=== PATIENT | female | born 1990 | race Caucasian/White ===

== ENCOUNTER 2019-01-08 08:38 | Emergency (ER) | payer OTHER ==
[~2019-01-08] VITALS: Ht 182.9 cm; Wt 95.3 kg
[2019-01-08 08:43] VITALS: BP 137/97
--- NOTE | 2019-01-08 08:49 | NUR ---
Patient ambulated to bed 3. RN evaluating patient at bedside.
--- NOTE | 2019-01-08 08:54 | NUR ---
28/f bib self c/o LEFT LOWER BACK PAIN RADIATING TO LEFT LOWER LEG X YESTERDAY. denies trauma/injury. PATIENT STATES LEFT CALF PAIN OF 10/10 AT THIS TIME. PATIENT POSITIONED FOR COMFORT; HOB ELEVATED; BEDRAILS UP X1; BED DOWN. ER MD MADE AWARE OF PT STATUS.
--- NOTE | 2019-01-08 09:31 | NUR ---
Patient being evaluated by DR IRBY at bedside.
--- NOTE | 2019-01-08 09:53 | NUR ---
PATIENT STATED SHE'S UNABLE TO PROVIDE URINE AT THIS TIME.
--- NOTE | 2019-01-08 10:20 | NUR ---
US AT BEDSIDE
--- NOTE | 2019-01-08 10:21 | NUR ---
PATIENT STATED SHE'S UNABLE TO PROVIDE URINE AT THIS TIME.
--- NOTE | 2019-01-08 11:10 | NUR ---
PATIENT STATED SHE'S UNABLE TO PROVIDE URINE AT THIS TIME.
[2019-01-08 12:37] VITALS: BP 123/78
== END 2019-01-08 12:37 | disposition home or self-care (01) ==
LOC: MED 08:38
DX: R25.2 Cramp and spasm (principal)
CPT/HCPCS: 81025; 93971; 99284; Q0092